=== PATIENT | female | born 1985 | race Caucasian/White ===

== ENCOUNTER 2016-11-30 17:46 | Emergency (ER) | payer OTHER | END 2016-11-30 18:50 | disposition home or self-care (01) | LOC: FER 17:46 | DX: S63.615A Unspecified sprain of left ring finger, initial encounter (principal); S63.617A Unspecified sprain of left little finger, initial encounter; W01.0XXA Fall on same level from slipping, tripping and stumbling without subsequent striking against object, initial encounter; Y92.009 Unspecified place in unspecified non-institutional (private) residence as the place of occurrence of the external cause | CPT/HCPCS: 73110; 73130 ==